=== PATIENT | female | born 1980 | race Caucasian/White ===

== ENCOUNTER 2018-11-04 20:30 | Emergency (ER) | payer BC, OTHER ==
[2018-11-04 21:15] VITALS: BP 121/83; PULSE 67; TEMP 98.6; BMI 32.3
--- NOTE | 2018-11-04 21:15 | PDOC ---
Rapid Medical Evaluation Chief Complaint: Lightheaded Time Seen by Provider: 11/04/18 21:12 Medical Evaluation: Allergies Allergy/AdvReac Type Severity Reaction Status Date / Time No Known Allergies Allergy Verified 02/13/18 18:12 11/04/18 21:12 37 year old female c/o dizziness since 2.30 pm. dizziness worse with laying down. + nausea denies vomiting PE: patient alert ox3 A: dizziness P: Ua urine patient to the ER for further management of care. Discharge Disposition - Diagnosis Dizziness - Referrals - Patient Instructions - Post Discharge Activity
[2018-11-04 21:58] LABS: EPI CELLS 2.4 /HPF (0-5/HPF); HYALINE CASTS 3 /lpf (0-8); PH,URINE 5.5 (5.0-8.0); URINE APPEARANCE CLEAR; URINE BACTERIA 684.2 /hpf (NEGATIVE); URINE BILIRUBIN NEGATIVE (NEGATIVE); URINE COLOR YELLOW; URINE GLUCOSE (UA) NEGATIVE (NEGATIVE); URINE KETONE NEGATIVE (NEGATIVE); URINE LEUK ESTERASE NEGATIVE (NEGATIVE); URINE NITRITE NEGATIVE (NEGATIVE); URINE PROTEIN NEGATIVE (NEGATIVE); URINE RBC 3 /hpf (0-4); URINE UROBILINOGEN 0.2 mg/dL (0.2-1.0); URINE WBC 6 /hpf (0-5)
--- NOTE | 2018-11-04 22:14 | PDOC ---
History of Present Illness - General Chief Complaint: Lightheaded Stated Complaint: DIZZINESS Time Seen by Provider: 11/04/18 21:12 History Source: Patient Exam Limitations: No Limitations - History of Present Illness Initial Comments: 11/04/18 22:08 Spencer Silva is a 37y previously healthy F presenting w dizziness. At 230p today, she had sudden onset dizziness worse lying down. Feels room is spinning. Associated nausea. Went away after 1 hr, came back at 6p. Did not vomit. Did not take any meds. Denies fever, change in vision, headache, chest/ AB pain, SOB, urinary/bowel mvmt changes. Past History - Past Medical History Allergies/Adverse Reactions: Allergies Allergy/AdvReac Type Severity Reaction Status Date / Time No Known Allergies Allergy Verified 11/04/18 21:16 Home Medications: Ambulatory Orders NK [No Known Home Medication] 02/13/18 COPD: No - Suicide/Smoking/Psychosocial Hx Smoking History: Never smoked Have you smoked in the past 12 months: No Information on smoking cessation initiated: No Hx Alcohol Use: Yes (social) Drug/Substance Use Hx: No Review of Systems - Review of Systems Constitutional: No: Chills, Fever HEENTM: No: Eye Pain, Recent change in vision, Ear Discharge, Nose Pain, Nose Congestion, Throat Pain, Mouth Pain Respiratory: No: Cough, Shortness of Breath Cardiac (ROS): No: Chest Pain, Edema, Palpitations, Syncope ABD/GI: Yes: Nausea. No: Abdominal Distended, Constipated, Diarrhea, Vomiting : No: Burning, Dysuria, Frequency, Flank Pain Musculoskeletal: No: Back Pain, Joint Pain, Joint Swelling, Muscle Pain Integumentary: No: Bruising, Change in Color, Dryness, Erythema Neurological: No: Headache, Numbness, Seizure, Tingling Psychiatric: No: Anxiety, Depression, Stressors Endocrine: No: Excessive Sweating, Flushing, Intolerance to Cold, Intolerance to Heat Hematologic/Lymphatic: No: Anemia, Blood Clots *Physical Exam - Vital Signs Last Vital Signs Temp Pulse Resp BP Pulse Ox 98.6 F 67 18 121/83 100 11/04/18 21:13 11/04/18 21:13 11/04/18 21:13 11/04/18 21:13 11/04/18 21:13 - Physical Exam General Appearance: Yes: Nourished, Appropriately Dressed. No: Apparent Distress HEENT: positive: EOMI, BREANNA, Normal Voice, Hearing Grossly Normal, Other (L ear impacted cerumen, no nystagmus w Chani Hallpike maneuver ). negative: Nasal Congestion, Rhinorrhea, TM Bulging, TM Dull, TM Erythema, Lesions Respiratory/Chest: positive: Lungs Clear, Normal Breath Sounds. negative: Chest Tender, Respiratory Distress, Crackles, Rales, Rhonchi, Stridor, Wheezing Cardiovascular: positive: Regular Rhythm, Regular Rate, S1, S2. negative: Edema , Murmur Extremity: positive: Normal Capillary Refill Integumentary: positive: Normal Color Neurologic: positive: orthotist II-XII NML intact, Fully Oriented, Alert, Normal Mood/ Affect, Normal Response, Motor Strength 5/5, Respond to painful stimul, Responsive. negative: Numbness, Confused, Disoriented ED Treatment Course - LABORATORY CBC & Chemistry Diagram: 11/04/18 22:49 11/04/18 22:49 - ADDITIONAL ORDERS Additional order review: Laboratory Results 11/04/18 11/04/18 21:25 21:25 Urine Color Yellow Urine Appearance Clear Urine pH 5.5 Ur Specific [place] 1.018 Urine Protein Negative Urine Glucose (UA) Negative Urine Ketones Negative Urine Blood Trace Urine Nitrite Negative Urine Bilirubin Negative Urine Urobilinogen 0.2 Ur Leukocyte Esterase Negative Urine WBC (Auto) 6 Urine RBC (Auto) 3 Urine Casts (Auto) 3 U Epithel Cells (Auto) 2.4 Urine Bacteria (Auto) 684.2 Urine HCG, Qual Negative Medical Decision Making - Medical Decision Making 11/04/18 23:00 CBC CMP UA normal 1L NS reglan Irrigated, removed impacted cerumen from L ear. Visualized normal tympanic membrane Spencer Silva is a 37y previously healthy F presenting w dizziness. Likely vertigo d/t impacted cerumen removed w irrigation resolved symptoms. Also given 1L NS and reglan. Ambulated in ED without dizziness . Not . CBC CMP UA normal. D/c home with PCP f/u *DC/Admit/Observation/Transfer Diagnosis at time of Disposition: Vertigo - Discharge Dispostion Disposition: HOME Condition at time of disposition: Improved Decision to Admit order: No - Referrals Referrals: Ector Baker MD [Staff Physician] - - Patient Instructions Printed Discharge Instructions: DI for Vertigo Additional Instructions: You were seen for dizziness. Your labs do not show anything concerning. You were given medication to help your nausea and dizziness. Please make an appointment with your primary care doctor or Dr Samuel TRUJILLO if you continue to have dizziness. Come back to the ED if you start vomiting, lose balance, or have a fever - Post Discharge Activity
--- NOTE | 2018-11-04 22:15 | PDOC ---
Attending Attestation - Resident Resident Name: Enio Hou - ED Attending Attestation I have performed the following: I have examined & evaluated the patient, The case was reviewed & discussed with the resident, I agree w/resident's findings & plan, Exceptions are as noted - HPI HPI: 11/04/18 22:27 37yo female with a 1 day hx of nausea and dizziness. No ear pain. No sinus congestion. No khan. no neck pain. No cp/sob. No abd pain. +nausea. States dizziness happens with position change and assoc with sensation room is spinning. No prior episodes of similar. Pt denies v/d. No dysuria. No trauma or head injury. No other complaints. - Physicial Exam PE: 11/04/18 22:28 Gen: aaox3, nad heent: PERRL, EOMI, L ear with impacted cerumen- cerumen removed by the resident - tm intact, no effusion, no redness to drum, nares patent, post pharynx clear heart: +s1s2 reg lungs: cta b/l abd: soft, nt/nd +bs ext: no c/c/e neuro: cn ii-xii grossly intact, no focal deficits, no nystagmus at this time, muscle strength 5/5 UE and LE, sensation intact - Medical Decision Making 11/04/18 22:31 a/p: 37yo female with vertiginous symptoms -cerumen removed by the resident -labs ordered -will start ivf hydration/reglan -neuro intact -will monitor and reassess -urine preg negative -pt is nontoxic in appearance 11/04/18 23:17 cbc and ua reviewed, no uti, no acute abnl in cbc pt states feeling much better pending chem will need ent follow up as outpt 11/05/18 00:17 pt feeling much better chem reviewed ambulatory in the ED stable for dc to home and follow up with ENT
[2018-11-04] MEDS ORDERED: METOCLOPRAMIDE HCL INJECTION 10 MG/2 ML VIAL IVPUSH ONE (22:27)
[2018-11-04] MEDS ORDERED: SODIUM CHLORIDE 0.9% 1000 ML INFUS.BAG IV ONE (22:27)
[2018-11-04] MEDS ORDERED: METOCLOPRAMIDE HCL INJECTION 10 MG/2 ML VIAL ONE (22:38)
[2018-11-04 22:55] LABS: BASO % 0.9 % (0-2.0); EOS % 1.1 % (0-4.5); HEMATOCRIT 39.6 % (32.4-45.2); HEMOGLOBIN 13.4 GM/dL (10.7-15.3); LYMPH % 42.5 % (8-40); MCH 30.3 pg (25.7-33.7); MCHC 33.9 g/dl (32.0-36.0); MEAN CELL VOLUME 89.5 fl (80-96); MEAN PLT VOLUME 7.5 fl (7.5-11.1); MONO % 5.7 % (3.8-10.2); NEUT % 49.8 % (42.8-82.8); PLATELET COUNT 335 K/MM3 (134-434); RBC 4.42 M/mm3 (3.60-5.2); RDW 13.6 % (11.6-15.6); WHITE BLOOD COUNT 8.6 K/mm3 (4.0-10.0)
[2018-11-04 23:37] LABS: ALBUMIN 3.6 g/dl (3.4-5.0); BILIRUBIN,TOTAL 0.2 mg/dL (0.2-1); BLOOD UREA NITROGEN 10.8 mg/dL (7-18); CREATININE 0.9 mg/dL (0.55-1.3); POTASSIUM 4.2 mmol/L (3.5-5.1); TOT PROT 7.4 g/dl (6.4-8.2)
== END 2018-11-05 00:33 | disposition home or self-care (01) ==
LOC: JER 20:30
PROC: 3E033GC Introduction of Other Therapeutic Substance into Peripheral Vein, Percutaneous Approach (ICD-10-PCS; principal; 2018-11-04)
PROC: 3E0337Z Introduction of Electrolytic and Water Balance Substance into Peripheral Vein, Percutaneous Approach (ICD-10-PCS; 2018-11-04)
DX: R42 Dizziness and giddiness (principal)
CPT/HCPCS: 36415; 80053; 81003; 83735; 84703; 85025; 99283-25; J7030

== ENCOUNTER 2019-09-02 05:27 | Emergency (ER) | payer BC ==
[2019-09-02 05:51] VITALS: BP 124/84; PULSE 85; TEMP 98.1; BMI 32.3
--- NOTE | 2019-09-02 06:11 | PDOC ---
Attending Attestation - Resident Resident Name: Parveen Cook - ED Attending Attestation I have performed the following: I have examined & evaluated the patient, The case was reviewed & discussed with the resident, I agree w/resident's findings & plan, Exceptions are as noted - HPI HPI: 09/02/19 06:35 See resident HPI - Physicial Exam PE: 09/08/19 19:43 Agree with documented exam - Medical Decision Making 09/02/19 06:35 Persistent globus sensation after eating popcorn, tolerating po and secretions w/o issue, no sob, normal wob Obstruction unlikely pt reassurance dc with follow up Discharge - Discharge Information Problems reviewed: Yes Clinical Impression/Diagnosis: Globus sensation Condition: Stable Disposition: HOME - Follow up/Referral Referrals: Jaya Lloyd [Staff Physician] - Trevor Yip MD [Non Staff, Medical] - Francis Bland MD [Non Staff, Medical] - Ector Baker MD [Staff Physician] - Naga Guerra MD [Staff Physician] - Marko Aguirre MD [Staff Physician] - - Patient Discharge Instructions Additional Instructions: Today you were evaluated for a sensation of something stuck in your throat. We have evaluated you and have found that you do not have a condition that requires immediate emergency treatment. You are able to speak, eat, and drink without any issues. It is safe for you to return home. A referral to a throat specialist, or ENT, has been given, please see them in the office to better figure out what is causing your problem. If you experience any worsening throat pain, coughing, vo miting, fever, or difficulty breathing, please return to the emergency room. - Post Discharge Activity
--- NOTE | 2019-09-02 06:18 | PDOC ---
History of Present Illness - General Chief Complaint: Sore Throat Stated Complaint: THROAT PROBLEM History Source: Patient Exam Limitations: No Limitations - History of Present Illness Initial Comments: 09/02/19 06:11 Spencer Silva is an otherwise healthy 38F presenting with complaint of a popcorn kernal stuck in her throat. Was eating popcorn with her children 2 days ago when she felt one of the kernals get stuck in her throat. Denies any SOB, difficulty breathing, difficulty swallowing, or pain. Just says it irritates her that she cannot get rid of it despite trying to cough it up. No nausea, vomiting, throat pain, fever, chills, chest pain. No dental problems, no thyroid disease, no neck surgery or radiation. No voice changes. No other symptoms. Came to ED today out of concern for length of time she has had sensation and lack of success getting rid of it. PSH: 2x C-sections Meds: Seroquel for anxiety Denies tobacco/alcohol/drug use Past History - Medical History Allergies/Adverse Reactions: Allergies Allergy/AdvReac Type Severity Reaction Status Date / Time No Known Allergies Allergy Verified 09/02/19 05:47 Home Medications: Ambulatory Orders NK [No Known Home Medication] 02/13/18 COPD: No - Psycho-Social/Smoking History Smoking History: Never smoked Have you smoked in the past 12 months: No Information on smoking cessation initiated: No - Substance Abuse Hx (Audit-C & DAST Scrn) How often the patient has a drink containing alcohol: Never Score: In Men: 4 or > Positive; In Women: 3 or > Positive: 0 Screen Result (Pos requires Nsg. Audit-10AR): Negative In the last yr the pt used illegal drug/Rx for NonMed reason: No Score: Yes response is considered Positive: 0 Screen Result (Positive result requires Nsg. DAST-10): Negative Review of Systems - Review of Systems Able to Perform ROS?: Yes Is the patient limited Chinese proficient: No Constitutional: No: Symptoms Reported HEENTM: Yes: Other (sensation of something stuck in her throat) Respiratory: No: Cough, Shortness of Breath, SOB with Exertion, SOB at Rest, Stridor, Wheezing Cardiac (ROS): No: Chest Pain, Lightheadedness, Palpitations, Syncope, Chest Tightness ABD/GI: No: Constipated, Diarrhea, Difficulty Swallowing, Nausea, Poor Appetite, Poor Fluid Intake, Vomiting, Indigestion : No: Symptoms Reported Musculoskeletal: No: Symptoms Reported Integumentary: No: Symptoms Reported Neurological: No: Symptoms reported Endocrine: No: Symptoms Reported Hematologic/Lymphatic: No: Symptoms Reported All Other Systems: Reviewed and Negative *Physical Exam - Vital Signs Last Vital Signs Temp Pulse Resp BP Pulse Ox 98.1 F 85 20 124/84 99 09/02/19 05:47 09/02/19 05:47 09/02/19 05:47 09/02/19 05:47 09/02/19 05:47 - Physical Exam General Appearance: Yes: Nourished, Appropriately Dressed, Obese, Other (resting in bed in NAD). No: Apparent Distress HEENT: positive: EOMI, BREANNA, Normal ENT Inspection, Normal Voice, Symmetrical, Pharynx Normal, Hearing Grossly Normal, Other (normal ENT exam, no pharyngeal swelling, unable to visualize any popcorn in opropharynx, thyroid normal, no neck tenderness or swelling, full ROM at neck). negative: Scleral Icterus (R), Scleral Icterus (L), Muffled/Hoarse voice, Pharyngeal Erythema, Tonsillar Exudate, Tonsillar Erythema, Nasal Congestion Neck: positive: Trachea midline, Normal Thyroid, Supple, Other (voice normal). negative: Tender, Decreased range of motion, Stridor, Lymphadenopathy (R), Lymphadenopathy (L), Tender lateral, Tender midline Respiratory/Chest: positive: Lungs Clear, Normal Breath Sounds. negative: Chest Tender, Respiratory Distress, Accessory Muscle Use, Crackles, Rales, Rhonchi, Stridor, Wheezing Cardiovascular: positive: Regular Rhythm, Regular Rate Gastrointestinal/Abdominal: positive: Normal Bowel Sounds, Flat, Soft. negative: Tender, Organomegaly, Pulsatile Mass, Guarding, Rebound Musculoskeletal: positive: Normal Inspection. negative: CVA Tenderness, CVA Tenderness (R), CVA Tenderness (L), Decreased Range of Motion Extremity: positive: Normal Capillary Refill, Normal Inspection, Normal Range of Motion, Pelvis Stable. negative: Tender, Coldness, Cyanosis Integumentary: positive: Normal Color, Dry, Warm. negative: Cyanotic, Erythema, Diaphoresis Neurologic: positive: Fully Oriented, Alert, Normal Mood/Affect, Normal Response. negative: Motor Strength 5/5 Medical Decision Making - Medical Decision Making 09/02/19 15:45 Patient presents with complaint of a popcorn kernal suck in her throat. No concerning pathology noted on history, PE, or VS. Patient counseled that there is no life-threatening emergency that requires treatment since she can eat and breathe without problems. Safe to discharge home with PMD/ENT f/u, which was provided. Discharge - Discharge Information Problems reviewed: Yes Clinical Impression/Diagnosis: Globus sensation Condition: Stable Disposition: HOME - Admission No - Follow up/Referral Referrals: Francis Bland MD [Non Staff, Medical] - Ector Baker MD [Staff Physician] - Naga Guerra MD [Staff Physician] - Marko Aguirre MD [Staff Physician] - Jaya Lloyd [Staff Physician] - Trevor Yip MD [Non Staff, Medical] - - Patient Discharge Instructions Additional Instructions: Today you were evaluated for a sensation of something stuck in your throat. We have evaluated you and have found that you do not have a condition that requires immediate emergency treatment. You are able to speak, eat, and drink without any issues. It is safe for you to return home. A referral to a throat specialist, or ENT, has been given, please see them in the office to better figure out what is causing your problem. If you experience any worsening throat pain, coughing, vomiting, fever, or difficulty breathing, please return to the emergency room. - Post Discharge Activity
== END 2019-09-02 06:30 | disposition home or self-care (01) ==
LOC: JER 05:27
DX: R09.89 Other specified symptoms and signs involving the circulatory and respiratory systems (principal)
CPT/HCPCS: 99283-25